=== PATIENT | female | born 1965 | race Two or more races ===

== ENCOUNTER 2023-12-10 19:33 | Emergency (ER) | payer SELFPAY ==
[~2023-12-10] VITALS: Ht 157.5 cm; Wt 78.0 kg
[2023-12-10 19:45] VITALS: BP 142/76; PULSE 75; RESP 16; TEMP 98.7
[2023-12-10 22:14] VITALS: O2SAT 98
== END 2023-12-10 22:25 | disposition home or self-care (01) ==
LOC: ER 19:33
DX: S71.131A Puncture wound without foreign body, right thigh, initial encounter (principal); X58.XXXA Exposure to other specified factors, initial encounter; Y93.89 Activity, other specified; Y92.89 Other specified places as the place of occurrence of the external cause; Y99.8 Other external cause status